=== PATIENT | male | born 1950 | race Caucasian/White ===

== ENCOUNTER 2019-12-10 06:23 | Day surgery (SDC) | payer MEDICARE ==
[2019-12-09 13:32] VITALS: BMI 30.2
[~2019-12-10 06:23] MED LIST: Fluorouracil 100 MG, Enoxaparin Sodium 25 MG, EPINEPHrine 0.3 MG in Ophthalmic Irrigati... IRR SCH
[2019-12-10] MEDS ORDERED: Midazolam HCl 2 mg/2 ml Vial ONE (06:38)
[2019-12-10] MEDS ORDERED: Fentanyl 100 MCG/2 ML VIAL ONE (06:38)
[2019-12-10] MEDS ORDERED: Phenylephrine 2.5% Ophth Soln 5 ML BOT ONE (07:06)
[2019-12-10] MEDS ORDERED: Cyclopentolate 1% Opth Drop 2 ML BOT ONE (07:06)
[2019-12-10] MEDS ORDERED: PROPOFOL 20 ML ONE (07:14)
--- NOTE | 2019-12-10 09:12 | OP ---
DATE OF PROCEDURE: 12/10/2019 PREOPERATIVE DIAGNOSIS: Epiretinal membrane, left eye. POSTOPERATIVE DIAGNOSIS: Epiretinal membrane, left eye. PROCEDURE PERFORMED: Pars plana vitrectomy and membrane peel, left eye. ANESTHESIA: Local monitored anesthesia care. PROCEDURE IN DETAIL: The patient was identified in the preoperative holding area. Appropriate informed consent for the planned surgical procedure on the left eye had been obtained. The patient was transported to the operative suite, where appropriate cardiopulmonary monitoring was established. Local anesthesia was obtained using retrobulbar modified Van Lint lid block using 50:50 mixture of 4% percent lidocaine and 0.75% bupivacaine. The patient was prepped and draped in the usual sterile manner for ophthalmic surgery in the left eye. Lid speculum was placed in the left eye. A 25-gauge trocar was placed in the conjunctiva and sclera superotemporally, inferotemporally, and supranasally. Infusion line was placed inferotemporally. Light pipe and vitreous cutter were inserted into the eye. Core vitrectomy was performed. Indocyanine green dye was infused on the posterior pole x3, identifying a diffusely adherent, flat epiretinal membrane that was from equator to equator. The area was elevated inferotemporally and the epiretinal membrane was peeled across the macular area. Indirect ophthalmoscopy was used to examine the retina 360 degrees. No holes, breaks, or tears were identified. Trocars were removed. Eye was noted to retain pressure well. Retrobulbar Kenalog and subconjunctival Ancef were placed. Antibiotic ointment was placed. Eye was patched and shield. The patient was taken to postoperative recovery unit in good condition, having suffered no immediate perioperative complications. The patient was instructed to keep patch and shield on, avoid lifting or bending, followup appointment with Dr. Jurado. Job ID: [id number]
[2019-12-10] MEDS ORDERED: Bupivacaine PF 0.75% SDV 10 ML ONE (11:10)
[2019-12-10] MEDS ORDERED: Lidocaine 4% PF 5 ML AMP ONE (11:10)
[2019-12-10] MEDS ORDERED: Lidocaine 1% PF 5 ML VIAL ONE (11:10)
[2019-12-10] MEDS ORDERED: Enoxaparin Sodium 30 MG/0.3 ML SYRINGE ONE (11:10)
[2019-12-10] MEDS ORDERED: CEFAZOLIN 1 GM VIAL ONE (11:10)
[2019-12-10] MEDS ORDERED: Maxitrol 0.1% Opth Oint 3.5 GM TUBE ONE (11:10)
[2019-12-10] MEDS ORDERED: Triamcinolone 40 MG/ML VIAL ONE (11:10)
[2019-12-10] MEDS ORDERED: Indocyanine Green 25 MG/10 ML VIAL ONE (11:10)
== END 2019-12-10 09:25 | disposition home or self-care (01) ==
LOC: SDC 06:23
PROVIDERS: ATTEND Ophthalmology Retina Specialist
PROC: 08T53ZZ Resection of Left Vitreous, Percutaneous Approach (ICD-10-PCS; principal; 2019-12-10)
PROC: 08NF3ZZ Release Left Retina, Percutaneous Approach (ICD-10-PCS; 2019-12-10)
DX: H35.372 Puckering of macula, left eye (principal)
CPT/HCPCS: J0171; J0690; J1650; J2001; J2250; J2704; J3010; J3301; J3490; J9190